=== PATIENT | male | born 1970 | race Caucasian/White ===

== ENCOUNTER 2025-10-05 18:43 | Emergency (ER) | payer MEDICAID ==
[~2025-10-05] VITALS: Ht 175.3 cm; Wt 81.6 kg
[2025-10-05] MEDS ORDERED: LIDOCAINE 1%-EPI 1:100,000 20 ML VIAL ONE (19:19)
[2025-10-05] MEDS ORDERED: HYDROCODONE/APAP 10/325MG TABLET ONE (19:20)
[2025-10-05] MEDS ORDERED: TDAP [DIPH/PERTUSSIS/TET] 0.5 ML VIAL IM ONE (19:20)
[2025-10-05] MEDS: HYDROCODONE/APAP 10/325MG TABLET PO ONE (19:30)
[2025-10-05] MEDS: TDAP [DIPH/PERTUSSIS/TET] 0.5 ML VIAL IM ONE (19:31)
[2025-10-05] MEDS ORDERED: TETRAcaine 5 ML BOTTLE ONE (20:22)
[2025-10-05] MEDS: LIDOCAINE 1%-EPI 1:100,000 20 ML VIAL TP ONE (20:50)
[2025-10-05] MEDS: TETRACAINE HCL 0.5% OPHTALMIC 15 ML BOTTLE EACHEYE ONE (20:57)
[2025-10-05] MEDS: FLUORESCEIN SODIUM OPHTH 1 EA STRIP OP ONE (20:57)
[2025-10-05] MEDS ORDERED: IBUP-1957 PO (21:51)
[2025-10-05] MEDS ORDERED: PSEU120T99 PO (21:51)
[2025-10-05] MEDS ORDERED: AMOX-430 PO (21:51)
[2025-10-05] MEDS: AMOX/CLAVULANATE 875 MG TABLET PO ONE (21:55)
[2025-10-05] MEDS ORDERED: HYDR-3980 PO (22:20)
[2025-10-05 22:37] VITALS: BP 130/81; TEMP 98; O2SAT 99
== END 2025-10-05 22:38 | disposition home or self-care (01) ==
LOC: ER 18:45
DX: S02.2XXA Fracture of nasal bones, initial encounter for closed fracture (principal); S02.831A Fracture of medial orbital wall, right side, initial encounter for closed fracture; S01.81XA Laceration without foreign body of other part of head, initial encounter; Y04.0XXA Assault by unarmed brawl or fight, initial encounter; Y93.89 Activity, other specified; Y92.89 Other specified places as the place of occurrence of the external cause; Y99.9 Unspecified external cause status
CPT/HCPCS: 12013; 70450; 70486; 72125; 90471; 90715; 99285; A6403; J3490